=== PATIENT | female | born 1965 | race Hispanic/Latino ===

== ENCOUNTER 2023-08-13 23:30 | Emergency (ER) | payer OTHER ==
[~2023-08-13] VITALS: Ht 165.1 cm; Wt 89.8 kg
[2023-08-14] MEDS ORDERED: ACETAMINOPHEN 325 MG TAB PO ONE
[2023-08-14] MEDS ORDERED: HYDRALAZINE 20MG/ML VIAL IV ONE
[2023-08-14] MEDS ORDERED: AMOX500C2 PO (01:50)
[2023-08-14] MEDS ORDERED: IBUP-1493 PO (01:50)
[2023-08-14 01:59] VITALS: BP 140/77; PULSE 65; RESP 16; O2SAT 98
== END 2023-08-14 02:07 | disposition home or self-care (01) ==
LOC: EDH 23:30
DX: H66.92 Otitis media, unspecified, left ear (principal); I10 Essential (primary) hypertension; G44.209 Tension-type headache, unspecified, not intractable; Z79.1 Long term (current) use of non-steroidal anti-inflammatories (NSAID)
CPT/HCPCS: 99285; 96374; 70450; J0360

== ENCOUNTER 2024-11-04 08:44 | Day surgery (SDC) | payer OTHER ==
[2024-11-03 13:27] LABS: BASOPHILS # (AUTO) 0.06 K/uL (0.00-0.20); BASOPHILS % (AUTO) 0.8 % (0.0-5.0); EOSINOPHILS # (AUTO) 0.18 K/uL (0.00-0.70); EOSINOPHILS % (AUTO) 2.3 % (0.0-8.0); HEMATOCRIT 39.1 % (36-48); IMMATURE GRANULOCYTE ABSOLUTE 0.02 K/uL (0-1); LYMPHOCYTES # (AUTO) 2.7 K/uL (1.0-4.8); LYMPHOCYTES % (AUTO) 35.5 % (21.0-51.0); MEAN CORPUSCULAR HEMOGLOBIN 28.6 pg (27.0-33.0); MEAN CORPUSCULAR HGB CONC 31.7 g/dL (32.0-36.0); MEAN CORPUSCULAR VOLUME 90.3 fL (79-99); MONOCYTES # (AUTO) 0.8 K/uL (0.1-1.0); MONOCYTES % (AUTO) 10.3 % (3.0-13.0); NEUTROPHILS # (AUTO) 3.9 K/uL (1.8-7.7); NEUTROPHILS % (AUTO) 50.8 % (40.0-77.0); PLATELET COUNT (AUTO) 296 K/uL (130-400); RED BLOOD CELL COUNT(AUTO) 4.33 MIL/uL (4.00-5.50); RED CELL DISTRIBUTION WIDTH 12.5 % (11.0-15.5); WHITE BLOOD COUNT (AUTO) 7.7 K/uL (4.8-10.8)
[2024-11-03 13:33] LABS: CREATININE 0.6 mg/dL (0.5-1.0); POTASSIUM 4.8 mmol/L (3.5-5.1)
--- NOTE | 2024-11-03 16:26 | NUR ---
verify called dr torres/lobo to see if surgical clearance needed as per h&p. ok to proceed as per .
[2024-11-04] VITALS (13 sets, daily range): BP systolic 98–177; BP diastolic 50–89; PULSE 56–65; RESP 11–16; TEMP 97–98
[~2024-11-04] VITALS: Ht 165.1 cm; Wt 91.6 kg
[~2024-11-04 08:44] MED LIST: ATOR10 PO; ELET20TA2 PO; FLUT16H NASAL; LORA10TA7 PO; LOSA50TA64 PO; PROP120C2 PO
[2024-11-04] MEDS ORDERED: FAMOTIDINE 20MG VIAL IV ONE (09:13)
[2024-11-04] MEDS ORDERED: proPOFol 10 MG/ML 20ML VIAL IV ONE (10:00)
[2024-11-04] MEDS ORDERED: FENTanyl CITRate PF 50 MCG/1 ML 2ML VIAL ONE (10:00)
[2024-11-04] MEDS ORDERED: LIDOCAINE PF 100MG/5ML (2%) SYRINGE 5ML ONE (10:00)
[2024-11-04] MEDS ORDERED: rocuRONium bROMide 10MG/1ML 5ML VL ONE (10:00)
[2024-11-04] MEDS ORDERED: MIDAZOLAM HCL 1 MG/ML 2ML VIAL ONE (10:15)
[2024-11-04] MEDS: LACTATED RINGERS 1000ML 1,000 ML IV ONE (10:21)
[2024-11-04] MEDS ORDERED: ondanSETRON 4MG INJ ONE (10:34)
[2024-11-04] MEDS: ceFAZolin SODIUM 2 GM VIAL ONE (10:50)
[2024-11-04] MEDS: LIDOCAINE HCL 1% 20 ML VIAL ONE (10:55)
[2024-11-04] MEDS: BUPIvacaine/PF 0.5% 30ML VIAL ONE (10:55)
[2024-11-04] MEDS ORDERED: SUGAMMADEX SODIUM 200 MG/2 ML VIAL IV ONE (11:23)
--- NOTE | 2024-11-04 11:50 | OP ---
Operative Note: DATE OF PROCEDURE: 11/04/24 SURGEON: BRYCE MONTILLA DO PLANT ATTENDANT: None ANESTHESIA: General ANESTHESIOLOGIST/MED DIR: SOL Roberts PREOPERATIVE DIAGNOSIS: Soft tissue mass of mid back POSTOPERATIVE DIAGNOSIS: Soft tissue mass of mid back SYNOPSIS: None PROCEDURE: Excision of soft tissue mass from back ESTIMATED BLOOD LOSS: 15 cc INDICATIONS: This is a 58-year-old female with a soft tissue mass of the mid back for many years. She reports multiple episodes of infection requiring antibiotic and sometimes incision and drainage. The mass reaccumulated in size. I recommended excision to the patient in order to prevent future infections. I discussed the procedure in detail with the patient. All questions were answered. The patient expressed understanding and agreement with plan. DESCRIPTION OF PROCEDURE: The patient was placed on the operating table in supine position. After adequate sedation the patient was intubated by anesthesia. Perioperative antibiotics were given. The patient was then turned to the left lateral decubitus position. The patient's back was prepped and draped in the usual sterile fashion. A time-out was performed. Local anesthetic was infiltrated into the skin and soft tissue of the proposed excision. A 7 cm elliptical skin incision was made encircling the mass. These skin and subcutaneous tissue was excised including this 4-5 cm cystic structure down to and including the level of the subcutaneous fat. The specimen was maciel ded off for routine pathology. The wound was copiously irrigated with sterile saline. The deep tissues were approximated using interrupted sutures of 2-0 Vicryl. The dermal layer was approximated using a running suture of 3-0 Vicryl. The skin was approximated using 4-0 Monocryl in a subcuticular fashion. The wound was dressed with Dermabond. The patient tolerated the procedure well. All instrument, needle, and sponge counts were correct at the end of the procedure. The patient was aroused from sedation, extubated, and transferred to the postanesthesia care unit in good condition. BRYCE MONTILLA DO Nov 04, 2024 11:50
--- NOTE | 2024-11-04 13:05 | NUR ---
Full and complete discharge instructions given to Patient and Family both verbally and in writing. All questions answered. Tolerating PO fluids well. Voiced understanding to SURGICAL procedure and follow up. Dressing clean and dry. PIV removed with catheter tip intact. W\C to POV with Family to home.
== END 2024-11-04 13:11 | disposition home or self-care (01) ==
LOC: DAH 08:44
PROVIDERS: ATTEND Student in an Organized Health Care Education/Training Program
DX: R22.2 Localized swelling, mass and lump, trunk (principal); L72.0 Epidermal cyst; L08.89 Other specified local infections of the skin and subcutaneous tissue; I10 Essential (primary) hypertension; G43.909 Migraine, unspecified, not intractable, without status migrainosus; E78.5 Hyperlipidemia, unspecified; E66.9 Obesity, unspecified; K21.9 Gastro-esophageal reflux disease without esophagitis; Z88.6 Allergy status to analgesic agent; Z88.8 Allergy status to other drugs, medicaments and biological substances; Z68.34 Body mass index [BMI] 34.0-34.9, adult; Z79.899 Other long term (current) drug therapy
CPT/HCPCS: 80048; 84703; 85025; 86850; 86900; 86901; 36415; 11406; 00300; 12032; 82948; 88304; A4663; J7030; J7120; J3490 ×2; J3010; J2003; J2250; J2704; J2405; J0665; J0690; A4930 ×2; A4215; A4223; A4222; A4221; A4600